=== PATIENT | female | born 1995 | race Caucasian/White ===

== ENCOUNTER 2019-06-27 02:33 | Emergency (ER) | payer OTHER ==
[~2019-06-27] VITALS: Ht 157.5 cm; Wt 59.0 kg
[~2019-06-27 02:33] MED LIST: PROTONIX40 MG PO
[2019-06-27] MEDS ORDERED: ADDERALL 20 MG20 M1 PO (02:39)
[2019-06-27] MEDS ORDERED: NEXPLANON68 MG SUBQ (02:39)
[2019-06-27] MEDS ORDERED: WELLBUTRIN XL300 MG PO (02:40)
[2019-06-27 04:07] LABS: ABSOLUTE NEUTROPHILS 3.5 thou/uL (1.4-8.2); BASOPHILS 0.5 % (0.0-2.0); EOSINOPHILS 0.4 % (0.0-3.0); HEMATOCRIT 40.3 % (37.0-47.0); HEMOGLOBIN 13.5 gm/dL (12.0-15.0); LYMPHOCYTES 21.1 % (24.0-44.0); MCH 31.2 pg (26.0-34.0); MCHC 33.4 g/dL (28.0-37.0); MCV 93.6 fL (80.0-100.0); PLATELET COUNT 254 thou/uL (150-400); RBC 4.31 mil/uL (4.20-5.00); RDW 12.1 % (10.5-14.5)
[2019-06-27 04:10] LABS: CALCIUM 9.9 mg/dL (8.5-10.1); POTASSIUM 3.2 mmol/L (3.5-5.1)
[2019-06-27 04:16] LABS: ALBUMIN 4.4 g/dL (3.4-5.0); TOTAL BILIRUBIN 0.5 mg/dL (<0.1-1.0); TOTAL PROTEIN 7.9 g/dL (6.4-8.2)
[2019-06-27] MEDS ORDERED: REGLAN 10 MG TA10 MG PO (04:41)
[2019-06-27 04:42] LABS: URINE BILIRUBIN NEGATIVE (Negative); URINE BLOOD NEGATIVE (Negative); URINE CLARITY CLEAR; URINE COLOR YELLOW; URINE GLUCOSE-RANDOM* NEGATIVE (Negative); URINE KETONES NEGATIVE (Negative); URINE NITRITE-REFLEX NEGATIVE (Negative); URINE PROTEIN (DIPSTICK) NEGATIVE (Negative); URINE SPECIFIC GRAVITY <= 1.005 (1.005-1.035); URINE UROBILINOGEN 0.2 E.U./dl (0.2-1.0)
[2019-06-27 04:47] LABS: URINE LEUKOCYTES-REFLEX 1+ (Negative)
[2019-06-27 04:59] LABS: SQUAMOUS 4-10 Moderate /LPF (0-3)
[2019-06-27 05:00] LABS: CASTS None Seen /LPF (None Seen); CRYSTALS None Seen /LPF (None Seen); MUCUS None Seen strn/LPF (None Seen); TRANSITIONAL EPITHEL CELL 0-3 Few /LPF (None Seen); URINE RBC 0-2 Rare /HPF (0-2); URINE WBC-REFLEX 6-15 Few /HPF (0-5)
[2019-06-27] MEDS ORDERED: CEFUROXIME250 MG PO (05:05)
[2019-06-27 05:11] VITALS: BP 105/57
== END 2019-06-27 05:15 | disposition home or self-care (01) ==
LOC: ER 02:33
PROVIDERS: Emergency Medicine Emergency Medical Services
DX: R11.2 Nausea with vomiting, unspecified (principal); R10.32 Left lower quadrant pain

== ENCOUNTER 2020-04-08 07:05 | Emergency (ER) | payer OTHER ==
[~2020-04-08] VITALS: Ht 157.5 cm; Wt 59.0 kg
[~2020-04-08 07:05] MED LIST changes: +ADDERALL 20 MG20 M1 PO; +CEFUROXIME250 MG PO; +NEXPLANON68 MG SUBQ; +REGLAN 10 MG TA10 MG PO; +WELLBUTRIN XL300 MG PO
[2020-04-08] MEDS ORDERED: BUTALB-APAP-CA1 EACH PO (08:50)
[2020-04-08] MEDS ORDERED: METHOCARBAMOL500 M2 PO (08:50)
[2020-04-08 08:55] VITALS: BP 132/76
== END 2020-04-08 08:55 | disposition home or self-care (01) ==
LOC: ER 07:05
DX: G44.209 Tension-type headache, unspecified, not intractable (principal); R20.2 Paresthesia of skin; Z79.899 Other long term (current) drug therapy